=== PATIENT | male | born 1965 | race Caucasian/White ===

== ENCOUNTER 2019-04-12 11:18 | Inpatient (IN) ==
[2019-04-12 11:42] LABS: iSTAT Creatinine 1.2 mg/dl (0.6-1.3); iSTAT Hemoglobin 16.3 g/dl (14.0-18.0); iSTAT Ionized Calcium 1.14 mmol/l (1.12-1.32); iSTAT Potassium 3.9 mEq/L (3.3-5.0)
[2019-04-12 11:43] LABS: Basophils # (auto) 0.07 K/uL (0-0.2); Basophils % (auto) 0.9 %; Eosinophils # (auto) 0.22 K/uL (0-0.5); Eosinophils % (auto) 2.9 %; Hematocrit (blood only) 45.5 % (42-52); Hemoglobin 15.6 g/dL (14.0-18.0); Mean Corpuscular Hemoglobin 29.5 pg (25-34); Mean Corpuscular Hgb Conc 34.3 g/dL (32-36); Mean Corpuscular Volume 86.2 fL (80-100); Mean Platelet Volume 10.4 fL (7.4-10.4); Monocytes # (auto) 0.81 K/uL (0.11-0.59); Monocytes % (auto) 10.6 %; Neutrophils # (auto) 3.64 K/uL (1.4-6.5); Neutrophils % (auto) 47.6 %; Platelet Count 318 K/uL (130-400); RDW Coefficient of Variation 14.2 % (11.5-14.5); RDW Standard Deviation 44.1 fL (36.4-46.3); Red Blood Count 5.28 M/uL (4.7-6.1); White Blood Count 7.64 K/uL (4.8-10.8)
[2019-04-12 11:43] LABS: iSTAT Arterial Blood Gas HCO3 26 meg/L (19-24); iSTAT Arterial Blood Gas pCO2 42 mmHg (35-46); iSTAT Arterial Blood Gas pO2 397 mmHg (80-95); iSTAT Carbon Dioxide 27 mEq/l (24-31)
[2019-04-12] MEDS ORDERED: OPTIRAY 320 125ml IV PRN (11:45)
--- NOTE | 2019-04-12 11:58 | CT Scan Report ---
UNENHANCED CT OF THE BRAIN; CT ANGIOGRAM OF THE BRAIN; CT ANGIOGRAM OF THE NECK CLINICAL HISTORY: Change in mental status. Unresponsive. COMPARISON STUDY: No priors. TECHNIQUE: Unenhanced axial CT scan of the brain is performed. Subsequently, following the IV adminis tration of 120 of [address] 320, CT angiogram of the head and neck was performed from the aortic arch t o the vertex. Images are reviewed in the axial, sagittal, and coronal planes. 3-D MIPS images are cre ated and assessed. IV contrast was administered without complication. All measurements were calculate d based on NASCET criteria. A dose lowering technique was utilized adhering to the principles of ALA RA. CT DOSE: 1268.10 mGy.cm FINDINGS: Brain parenchyma: The brain parenchyma is normal in appearance. There is no hemorrhage, mass effect, or evidence of acute territorial ischemia by CT criteria. There is no evidence of enhancing mass lesi on on the angiogram phase images. The ventricles, sulci, and cisterns are normal in configuration. Gr ay-white matter differentiation is preserved. No extra-axial fluid collection is seen. Thoracic aorta: Visualized portions of the thoracic aorta are normal in caliber. The aortic arch demo nstrates standard 3-vessel anatomy. Right carotid arterial system: The right common carotid artery is widely patent, as are the right int ernal and external carotid arteries. Mild atherosclerotic plaque is noted in the carotid bulb. Left carotid arterial system: The left common carotid artery is widely patent, as are the left architect intern al and external carotid arteries. Mild atherosclerotic plaque is noted in the carotid bulb. Vertebral arteries: The vertebral arteries are patent bilaterally and codominant. Subclavian arteries: Widely patent bilaterally. Intracranial vasculature: There is a large right posterior communicating artery. The internal carotid arteries are patent at the skull base, as are the anterior and middle cerebral arteries bilaterally. The vertebrobasilar system and posterior cerebral arteries are widely patent. The vertebral arteries are codominant. There is no aneurysm, high-grade stenosis, or focal vessel cut off seen throughout t he intracranial circulation. Jugular veins: Widely patent bilaterally. Dural sinuses: Patent. Upper chest: Partially visualized upper lobe lung parenchyma appears clear. There are scattered subce ntimeter mediastinal lymph nodes. Soft tissues: The visualized pharyngeal soft tissues are normal in appearance noting angiographic pha se technique. The oropharyngeal airway appears widely patent. The salivary and thyroid glands are nor mal in appearance. No cervical lymphadenopathy is seen. Orbits: The bony orbits are intact. Orbital contents are normal in appearance. Skeletal structures: The calvarium appears intact. The cervical spine is maintained noting mild multi level spondylosis. No lytic or blastic lesion is seen. Sinuses and mastoids: There is a 3.5 cm retention cyst in the right maxillary antrum. Trace mucosal t hickening is seen in the left maxillary antrum. The remaining paranasal sinuses are clear. There is a trace right mastoid effusion. The left mastoid air cells are well pneumatized. IMPRESSION: 1. There is no hemorrhage, mass effect, or evidence of acute territorial ischemia by CT criteria. 2. Unremarkable CT angiogram of the brain. 3. Unremarkable CT angiogram of the neck. Electronically signed by: Catrachito Villalta M.D. 04/12/2019 11:56 AM
[2019-04-12 12:02] LABS: Alanine Aminotransferase 44 U/L (12-78); Albumin Level 3.8 gm/dl (3.4-5.0); Aspartate Aminotransferase 28 U/L (15-37); Blood Urea Nitrogen 11 mg/dl (7-18); Calcium 8.7 mg/dl (8.5-10.1); Carbon Dioxide 26 mmol/L (21-32); Chloride 108 mmol/L (98-107); Creatinine Clr Calc Pharmacy 95.2 ml/min; Est GFR (African American) 81.2; Glucose 94 mg/dl (70-99); Potassium 3.8 mmol/L (3.5-5.1); Sodium 141 mmol/L (136-145)
[2019-04-12 12:12] LABS: Albumin Globulin Ratio 1.1 (0.9-2); Alkaline Phosphatase 93 U/L (45-117); Bilirubin,Total 0.8 mg/dl (0.2-1); Globulin 3.6 gm/dl (2.5-4.0); Total Protein 7.4 gm/dl (6.4-8.2); Troponin I < 0.015 ng/ml (0-0.045)
[2019-04-12 12:28] LABS: Appearance Urine Clear (Clear); Bilirubin Urine Negative (Negative); Blood Urine Negative (Negative); Color Urine Yellow; Glucose Urine UA Negative (Negative); Ketones Urine Negative (Negative); Leukocyte Esterase Urine Negative (Negative); Nitrite Urine Negative (Negative); Protein Urine Negative (Negative); Specific Gravity Urine 1.037 (1.000-1.030); Urobilinogen Urine Negative (Negative); pH Urine 6.5 (4.5-7.5)
[2019-04-12] MEDS ORDERED: CLOPIDOGREL BISULFATE 300 MG TAB PO STA (12:45)
[2019-04-12 12:49] LABS: Amphetamines+Metham, Urine Neg (Neg); Barbiturates, Urine Neg (Neg); Benzodiazepine, Urine Neg (Neg); Cocaine, Urine Neg (Neg); MDMA (Ecstacy), Urine Neg (Neg); Methadone, Urine Neg (Neg); Opiate, Urine Neg (Neg); Phencyclidine, Urine Neg (Neg)
--- NOTE | 2019-04-12 13:44 | History & Physical Report ---
Date of Service April 12, 2019 Assessment & Plan (1) Stroke: (2) Altered mental status: Pt presented with c/o dizziness around 8:00am this morning and it is reported he went [place] [facility] and was found to have altered mental status and possible right sided weakness when he became unresponsive. In ER pt afebrile, P: 68, R: 21, BP: 180/115, 100% on NR transitioned to 3L NC with sat of 99% No leukocytosis, no significant electrolyte abnormality, TSH: 1.9, negative troponin, negative urine tox screen, negative ETOH level During ER course pt became alert and oriented ER physician reports spoke to neurology at [place] and pt out of window for TPA and recommended Plavix load and MRI brain. CT HEAD: There is no hemorrhage, mass effect, or evidence of acute territorial ischemia by CT criteria. CTA HEAD: Unremarkable CT angiogram of the brain. CTA NECK: Unremarkable CT angiogram of the neck. MRI BRAIN:There is a 7 mm focus of restricted diffusion identified in the left thalamus consistent with an acute to subacute lacunar infarct. No additional foci of restricted diffusion are identified. There is no hemorrhage or mass effect. -In ER given Plavix 300mg -Currently pt A&O x 3 with right sided weakness, no further dizziness or vision changes reported. Clear speech -ASA 324mg -Tele to monitor for arrhythmias -Trend troponin -Lipid panel, A1C in AM -Echo with bubble study -Aspiration precautions -PT/OT consult -Atorvastatin, Plavix, Aspirin -Allow permissive HTN, Labetaolol SBP>220 or DBP>120 in 1st 24 hrs -Neurology consult (3) GERD (gastroesophageal reflux disease): -Continue PPI DVT Prophylaxis -SCDs Full Code Follows with Dr Lopez for routine care Pt was seen and care coordinated with Dr Brown. See addendum History of Present Illness Chief Complaint: Altered mental status Primary Care Provider: Winston Lopez MD Pt is 53 y/o M with PMH GERD presented to ER for altered mental status unresponsive episode. Pt states around approx. 8:00am this morning pt was feeling dizzy adn had blurry vision. States he completed some errands and symptoms were worse and went to his local [facility] at [place]. It is reported he was not acting right, had altered mental status and there was question of right sided weakness. Reported he became unresponsive and was t ransported to ER by EMS. During ER course pt became more alert. ER Physician reports spoke to neurologist at [place] and recommended MRI brain and load with Plavix and reports pt out of window for TPA. Pt states he remembers going to the [facility] but doesn't remember anything after that until now in ER. He is now A&O x 3. Denies any current vision changes. Has right arm and leg weakness and some right finger paresthesias. Denies head injury, fever/chills, diaphoresis, N/V/D/C, MARTINI, neck pain, CP, SOB, orthopnea, palpitations, cough, sore throat, choking, otalgia, rhinorrhea, abdominal pain, extremity edema, rashes, urinary symptoms. Allergies Allergy/AdvReac Type Severity Reaction Status Date / Time No Known Allergies Allergy Unverified 04/12/19 12:02 Home Medications Home Medications Medication Instructions Recorded Confirmed Type cetirizine [Zyrtec] 10 mg PO QAM 04/12/19 04/12/19 History multivitamin 1 tab PO QAM 04/12/19 04/12/19 History pantoprazole 40 mg PO BID 04/12/19 04/12/19 History pyridoxine (vitamin B6) [Vitamin 50 mg PO QAM 04/12/19 04/12/19 History B-6] sildenafil 100 mg PO UD 04/12/19 04/12/19 History Past Med/Surg History Medical History History of positive PPD (Chronic) treated with INH x 6 months GERD (gastroesophageal reflux disease) (Chronic) Surgical History Status post hip replacement (Chronic) Right hip; 08/28/2015 Family History Father Prostate cancer Social History Preferred Language: [place] Communication Ability: Effective Body Technician Required: No Beliefs That Will Affect Care: None marital status: Current Living Situation: Spouse current occupational status: employed Other Information That Helps Us Care for You: No Feels Safe at Home: Yes Safety Concerns: Feels Safe At This Time Smoking Status: Never smoker Do You Dip or Chew Tobacco: No ; Second Hand Exposure: No ; Hx Alcohol Use: Yes Alcohol type: beer Hx Substance Use: No Review of Systems Review of Systems: All systems reviewed & are unremarkable except as noted in HPI & below Physical Exam Physical Exam: General: no acute distress, obese Head: normocephalic, atraumatic Eyes: PERRL, EOM's intact, mild nystagmus, conjunctiva non-injected, anicteric ENT: normal inspection external ears, nose, mucous membranes moist Neck: supple, trachea midline Lungs: clear, no respiratory distress, no wheezing/rhonchi/rales CV: RRR, no murmur, no JVD, no pretibial edema Abd: normal BS, soft, protuberant, non-tender Ext: no cyanosis, no calf tenderness Neuro: A&O x 3, Facial sensation is intact and symmetric, The face is strong and symmetric, Hearing grossly intact, no dysarthria, Shoulder shrug intact, Tongue is midline, normal movement, no fasciculations, Right arm weakness, able to actively raise to approx 70 degrees, strength 3/5, very decreased parachute crown sewer strength on right, right leg weakness very limited leg raise, pedal push and pull intact, 5/5 strength to left arm and leg and strong parachute crown sewer strength on left, sensation bilateral extremities reported intact and symmetric, left hand finger to nose intact, unable to test right secondary to right arm weakness Skin: warm, dry Results & Data Vital Signs (Past 12 Hours) Vital Signs Temp Pulse Resp BP Pulse Ox 04/12/19 13:10 156/100 H 99 04/12/19 13:00 68 17 152/111 H 98 04/12/19 12:50 74 15 156/105 H 99 04/12/19 12:40 73 21 153/101 H 99 04/12/19 12:30 70 16 168/119 H 99 04/12/19 12:20 70 20 159/104 H 99 04/12/19 12:10 74 17 148/108 H 94 04/12/19 12:00 79 16 155/108 H 98 04/12/19 11:50 84 15 172/117 H 99 04/12/19 11:45 86 18 179/116 H 99 04/12/19 11:24 36.8 C 68 21 180/115 H 100 04/12/19 11:22 70 21 180/115 H 100 Laboratory Results Short CBC 04/12/19 Range/Units 11:30 WBC 7.64 (4.8-10.8) K/uL Hgb 15.6 (14.0-18.0) g/dL Hct 45.5 (42-52) % Plt Count 318 (130-400) K/uL BMP 04/12/19 11:30 Sodium 141 Potassium 3.8 Chloride 108 H Carbon Dioxide 26 BUN 11 Creatinine 1.18 Glucose 94 Calcium 8.7 Cardiac Enzymes 04/12/19 Range/Units 11:30 Troponin I < 0.015 (0-0.045) ng/ml Liver Function 04/12/19 Range/Units 11:30 Total Bilirubin 0.8 (0.2-1) mg/dl AST 28 (15-37) U/L ALT 44 (12-78) U/L Alkaline Phosphatase 93 (45-117) U/L Albumin 3.8 (3.4-5.0) gm/dl Urine 04/12/19 Range/Units 12:16 Urine Color Yellow Urine Appearance Clear (Clear) Urine pH 6.5 (4.5-7.5) Ur Specific Sylvester 1.037 H (1.000-1.030) Urine Protein Negative (Negative) Urine Glucose (UA) Negative (Negative) Diagnostic Findings CT HEAD: There is no hemorrhage, mass effect, or evidence of acute territorial ischemia by CT criteria. CTA HEAD: Unremarkable CT angiogram of the brain. CTA NECK: Unremarkable CT angiogram of the neck. ECG Rate (beats per minute): 70 Rhythm: sinus rhythm Supervising Physician Co-Signing Physician Notes Patient is a 53-year-old male with no significant past medical history presents with history of altered mental status, unresponsive episode, dizziness, transient blurry vision and right-sided weakness which started this morning. Please review HPI for complete details of presentation. MRI brain showed findings suggestive of acute to subacute lacunar infarct of the left thalamus. Head and neck CT are unremarkable. Normal ammonia, TSH levels. Negative toxicology screen. UA not suggestive of any infection. On exam patient is moderately built and nourished, normocephalic atraumatic, EOMI, lungs are clear to auscultation, S1-S2, no murmur, abdomen soft nontender, no pedal edema, neuro--no facial deformity, right upper, lower extremity strength decreased 3/5, sensation intact. Patient is admitted for management of acute CVA. Evaluated by [facility] neurology and was thought to be out of window period for TPA. Started on aspirin, Plavix, Lipitor. Will obtain echo, lipid panel, A1c. Neurochecks, neurology consult. PT OT. Allow permissive hypertension in setting of acute CVA. I personally reviewed the record. Patient is interviewed and examined at bedside. Patient's care is coordinated with Magui Lorenzo PA-C. Please refer to the documentation above for details of patient's presentation and for discussion of other issues. (1) Altered mental status Altered mental status type: unspecified Qualified Code(s): R41.82 - Altered mental status, unspecified (2) Stroke CVA mechanism: unspecified Qualified Code(s): I63.9 - Cerebral infarction, unspecified
--- NOTE | 2019-04-12 13:56 | Magnetic Resonance Report ---
MRI OF THE BRAIN WITHOUT IV CONTRAST CLINICAL HISTORY: Change in mental status. Unresponsive. COMPARISON STUDY: CT of the brain performed the same day 04/12/2019. TECHNIQUE: MRI of the brain was performed utilizing various T1 and T2-weighted sequences in the axial , sagittal, and coronal planes. IV contrast was not administered for this examination. FINDINGS: Brain parenchyma: There is a 7 mm focus of restricted diffusion identified in the left thalamus consi stent with an acute to subacute lacunar infarct. No additional foci of restricted diffusion are ident ified. There is no hemorrhage or mass effect. There is minimal subcortical and periventricular microa ngiopathic change. Pedraza-white matter differentiation is preserved. No extra-axial fluid collection is seen. The cerebellar tonsils are normal in configuration. Ventricles, sulci, and cisterns: Normal in configuration. Pituitary and sella: Unremarkable. Intracranial vasculature: Normal flow voids are maintained at the skull base. Orbits: The bony orbits are grossly intact. Orbital contents are normal in appearance. Sinuses and mastoids: There is a 3.6 cm retention cyst in the right maxillary antrum. Trace mucosal t hickening is seen in the left maxillary antrum. The remaining paranasal sinuses are clear. There is t race right mastoid effusion. Calvarium: Unremarkable. Cervical cord: Partially visualized cervical spinal cord is normal in morphology and signal intensity . IMPRESSION: 1. There is a 7 mm focus of restricted diffusion identified in the left thalamus consistent with an a cute to subacute lacunar infarct. 2. No additional foci of restricted diffusion are identified. 3. There is no hemorrhage or mass effect. Electronically signed by: Catrachito Villalta M.D. 04/12/2019 1:55 PM
[2019-04-12] MEDS ORDERED: ASPIRIN 325 MG ECTAB PO SCH (14:30)
--- NOTE | 2019-04-12 14:43 | Emergency Department Note ---
Entered by Julia Reagan acting as a scribe for Cezar Underwood M.D. History of Present Illness General Chief complaint: Unresponsive Time Seen by Provider: 04/12/19 11:20 Source: family and friends History of Present Illness Onset (ago): hour(s) 3 Location: head Pain Consistency: + other (episode) Quality: + other (unresponsiveness) The patient is a 53 year old male that is presenting to the Emergency Room with complaints of an episode of unresponsiveness that started this morning on route to the ED. The patients friends at his [facility] report that the patient started complaining of right sided weakness and dizziness around 0800 this morning. They state that the patient presented at the [facility] to be brought to the ED. They note that the patient become unresponsive during the trip to the ED. The patients friends state that the patient drinks on occasion but denies that the patient had any alcohol in the past 24 hours. They note that the patients blood glucose level has been dropping since this morning, dropping from 120 mg /dL to 80 mg/dL upon arrival at the ED. They deny any significant medical history beyond GERD and a hip replacement. 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 The patient is minimally responsive to painful stimuli on exam. He does have a gag reflex. HPI and ROS are limited secondary to the patients limited responsive status. Home Medications Home Medications Medication Instructions Recorded Confirmed Type cetirizine [Zyrtec] 10 mg PO QAM 04/12/19 04/12/19 History multivitamin 1 tab PO QAM 04/12/19 04/12/19 History pantoprazole 40 mg PO BID 04/12/19 04/12/19 History pyridoxine (vitamin B6) [Vitamin 50 mg PO QAM 04/12/19 04/12/19 History B-6] sildenafil 100 mg PO UD 04/12/19 04/12/19 History Allergies Allergy/AdvReac Type Severity Reaction Status Date / Time No Known Allergies Allergy Unverified 04/12/19 12:02 Past Med/Surg History Medical History History of positive PPD (Chronic) treated with INH x 6 months GERD (gastroesophageal reflux disease) (Chronic) Surgical History Status post hip replacement (Chronic) Right hip; 08/28/2015 Family History Father Prostate cancer Social History marital status: Current Living Situation: Spouse current occupational status: employed Feels Safe at Home: Yes Smoking Status: Unknown if ever smoked Hx Alcohol Use: Yes (5 beers on weekends) Hx Substance Use: No Review of Systems HPI and ROS are limited secondary to the patient's limited responsive status. Physical Exam Vital Signs Vital Signs - 24 hr 04/12/19 11:22 04/12/19 11:24 04/12/19 11:45 Temperature 36.8 C Temperature Source Rectal Sepsis Recent Fever Within 48 Hours No Sepsis New/Unexplained Change in Mental Status No Sepsis Action Taken by Nursing No Action Required Pulse Rate 70 68 86 Pulse Rate from SpO2 Sensor 70 82 Pulse Rhythm Regular Pulse Strength Normal Respiratory Rate 21 18 Blood Pressure 180/115 H 180/115 H 179/116 H Blood Pressure Mean 136 136 137 Blood Pressure Position Lying Pulse Oximetry 100 100 99 Oxygen Delivery Method Non-rebreather Oxygen Flow Rate 15 04/12/19 11:50 04/12/19 12:00 04/12/19 12:10 Temperature Temperature Source Sepsis Recent Fever Within 48 Hours Sepsis New/Unexplained Change in Mental Status Sepsis Action Taken by Nursing Pulse Rate 84 79 74 Pulse Rate from SpO2 Sensor 84 75 72 Pulse Rhythm Pulse Strength Respiratory Rate 15 16 17 Blood Pressure 172/117 H 155/108 H 148/108 H Blood Pressure Mean 135 123 121 Blood Pressure Position Pulse Oximetry 99 98 94 Oxygen Delivery Method Nasal Cannula Nasal Cannula Nasal Cannula Oxygen Flow Rate 3 3 3 04/12/19 12:20 04/12/19 12:30 04/12/19 12:40 Temperature Temperature Source Sepsis Recent Fever Within 48 Hours Sepsis New/Unexplained Change in Mental Status Sepsis Action Taken by Nursing Pulse Rate 70 70 73 Pulse Rate from SpO2 Sensor 69 70 73 Pulse Rhythm Pulse Strength Respiratory Rate 20 16 21 Blood Pressure 159/104 H 168/119 H 153/101 H Blood Pressure Mean 122 135 118 Blood Pressure Position Pulse Oximetry 99 99 99 Oxygen Delivery Method Oxygen Flow Rate 04/12/19 12:50 04/12/19 13:00 04/12/19 13:10 Temperature Temperature Source Sepsis Recent Fever Within 48 Hours Sepsis New/Unexplained Change in Mental Status Sepsis Action Taken by Nursing Pulse Rate 74 68 Pulse Rate from SpO2 Sensor 75 69 63 Pulse Rhythm Pulse Strength Respiratory Rate 15 17 Blood Pressure 156/105 H 152/111 H 156/100 H Blood Pressure Mean 122 124 118 Blood Pressure Position Pulse Oximetry 99 98 99 Oxygen Delivery Method Nasal Cannula Nasal Cannula Nasal Cannula Oxygen Flow Rate 3 3 3 04/12/19 13:52 04/12/19 14:00 04/12/19 14:22 Temperature Temperature Source Sepsis Recent Fever Within 48 Hours Sepsis New/Unexplained Change in Mental Status Sepsis Action Taken by Nursing Pulse Rate 84 73 74 Pulse Rate from SpO2 Sensor 79 75 74 Pulse Rhythm Pulse Strength Respiratory Rate 15 15 21 Blood Pressure 151/112 H Blood Pressure Mean 125 Blood Pressure Position Pulse Oximetry 99 99 98 Oxygen Delivery Method Oxygen Flow Rate 04/12/19 14:30 Temperature Temperature Source Sepsis Recent Fever Within 48 Hours Sepsis New/Unexplained Change in Mental Status Sepsis Action Taken by Nursing Pulse Rate 80 Pulse Rate from SpO2 Sensor 78 Pulse Rhythm Pulse Strength Respiratory Rate 23 Blood Pressure Blood Pressure Mean Blood Pressure Position Pulse Oximetry 98 Oxygen Delivery Method Oxygen Flow Rate GENERAL: Responsive to strong stimuli, non-verbal. Withdraw from pain in all four extremities. HENT: Normocephalic, atraumatic. Gag reflex. EYES: Normal conjunctiva. Sclera non-icteric. No gaze deviation. NECK: Supple. No nuchal rigidity. RESPIRATORY: Clear to auscultation. Normal respiratory effort. CARDIAC: Normal rate. Normal rhythm. Extremities warm and well perfused. GI: Soft, non-distended. No tenderness to palpation. No masses. LOWER EXTREMITIES: Calves are equal size bilaterally and non-tender. No edema NEURO: Normal sensorium. No sensory or motor deficits noted. No facial droop. SKIN: Warm and dry. No rash or jaundice noted. Course 1119:The patient was evaluated in room B01. A complete history and physical examination was performed. The Respiratory Care Team was available upon arrival. The patient's blood glucose level is 80 mg/dL in the ED. He was taken to CT shortly after labs were drawn. 1151: I reevaluated the patient at this time. The patient will move to extremities to command but still non-verbal. 1230: The patient was noted to have focal weaknesses on the left side on reevaluation. He is able to verbalize at this time. He notes a pain in his left lower extremity. 1241: I discussed the patients case with Dr. Quinteros, [facility], who recommended that the patient be kept for observation at the hospital. He recommends a Plavix load and an MRI. 1253: I updated the patient at this time. [facility]ist service has been paged. 1308: I discussed the patient's case with MIRANDA Reynoso, who will evaluate the patient for further management and care with Dr. Brown as the attending physician. 1315: Upon reevaluation, the patient is resting comfortably. I discussed laboratory and radiographic results with the patient and his family. He ve rbalized agreement of the treatment plan. The patient will be evaluated for further management and care. 1412: I updated the family on the MRI results at this time. Consultations Consultation #1: I discussed the patients case with Dr. Quinteros, [facility], who recommended that the patient be kept for observation at the hospital. He recommends a Plavix load and an MRI. Time: 12:41 Consultation #2: I discussed the patient's case with MIRANDA Reynoso, who will evaluate the patient for further management and care with Dr. Brown as the attending physician. Time: 13:08 Administered Medications Ioversol (Optiray 320 125ml) 120 ml IV ONCE PRN PRN Reason: Interaction Checking Stop: 04/16/19 11:44 Last Admin: 04/12/19 11:46 Dose: 120 ml Documented by: [id number] Discontinued Medications Clopidogrel Bisulfate (Plavix) 300 mg PO NOW STA Stop: 04/12/19 12:46 Last Admin: 04/12/19 12:52 Dose: 300 mg Documented by: [id number] Medical Decision Making Differential Diagnosis Differential diagnosis: Etiologies such as metabolic, infection, hypoglycemia, electrolyte abnormalities, cardiac sources, intracerebral event, toxicologic, neurologic, as well as others were entertained. Medical Records Attestation: I reviewed the patient's medical records. Home Medications Current Medication List: was personally reviewed by me Laboratory Data Attestation: I reviewed the patient's lab results. Result diagrams: 04/12/19 11:30 04/12/19 11:30 Lab Results 04/12/19 04/12/19 04/12/19 Range/Units 11:27 11:30 11:30 WBC 7.64 (4.8-10.8) K/uL RBC 5.28 (4.7-6.1) M/uL Hgb 15.6 (14.0-18.0) g/dL POC Hgb (14.0-18.0) g/dl Hct 45.5 (42-52) % POC Hct (42-52) % MCV 86.2 (80-100) fL MCH 29.5 (25-34) pg MCHC 34.3 (32-36) g/dL RDW Std Deviation 44.1 (36.4-46.3) fL RDW Coeff of Codie 14.2 (11.5-14.5) % Plt Count 318 (130-400) K/uL MPV 10.4 (7.4-10.4) fL Immature Gran % (Auto) 0.0 % Neut % (Auto) 47.6 % Lymph % (Auto) 38.0 % Hyde % (Auto) 10.6 % Eos % (Auto) 2.9 % Baso % (Auto) 0.9 % Immature Gran # (Auto) 0.00 (0.00-0.02) K/uL Neut # (Auto) 3.64 (1.4-6.5) K/uL Lymph # (Auto) 2.90 (1.2-3.4) K/uL Hyde # (Auto) 0.81 H (0.11-0.59) K/uL Eos # (Auto) 0.22 (0-0.5) K/uL Baso # (Auto) 0.07 (0-0.2) K/uL POC pH 7.40 (7.35-7.45) POC pCO2 42 (35-46) mmHg POC pO2 397 H (80-95) mmHg POC HCO3 26 H (19-24) shane/L POC Total CO2 27 (24-31) mEq/l POC Base Excess 1.0 (-9-1.8) shane/L POC ABG O2 Sat 100.0 H (90-95) % POC Sodium (135-144) mEq/L Sodium 141 (136-145) mmol/L POC Potassium (3.3-5.0) mEq/L Potassium 3.8 (3.5-5.1) mmol/L POC Chloride (101-112) mEq/L Chloride 108 H (98-107) mmol/L Carbon Dioxide 26 (21-32) mmol/L Anion Gap 7.0 (3-11) POC Anion Gap (16-25) mmol/L POC BUN (7-18) mg/dl BUN 11 (7-18) mg/dl Creatinine 1.18 (0.6-1.4) mg/dl POC Creatinine (0.6-1.3) mg/dl Est Cr Clr Drug Dosing 95.2 ml/min Est GFR ( Amer) 81.2 Est GFR (Non-Af Amer) 70.0 BUN/Creatinine Ratio 9.0 L (10-20) Glucose 94 (70-99) mg/dl POC Glucose (other) (70-99) mg/dl Calcium 8.7 (8.5-10.1) mg/dl POC Ioniz Calcium Alex (1.12-1.32) mmol/l Total Bilirubin 0.8 (0.2-1) mg/dl AST 28 (15-37) U/L ALT 44 (12-78) U/L Alkaline Phosphatase 93 (45-117) U/L Ammonia (11-32) umol/L Troponin I < 0.015 (0-0.045) ng/ml Total Protein 7.4 (6.4-8.2) gm/dl Albumin 3.8 (3.4-5.0) gm/dl Globulin 3.6 (2.5-4.0) gm/dl Albumin/Globulin Ratio 1.1 (0.9-2) TSH 1.990 (0.300-4.500) uIu/ml Urine Color Urine Appearance (Clear) Urine pH (4.5-7.5) Ur Specific P[place] (1.000-1.030) Urine Protein (Negative) Urine Glucose (UA) (Negative) Urine Ketones (Negative) Urine Blood (Negative) Urine Nitrite (Negative) Urine Bilirubin (Negative) Urine Urobilinogen (Negative) Ur Leukocyte Esterase (Negative) Urine Opiates Screen (Neg) Ur Methadone, Qual (Neg) Urine Barbiturates (Neg) Ur Phencyclidine (PCP) (Neg) U Amphetamin/Meth Scrn (Neg) MDMA (Ecstasy) Screen (Neg) U Benzodiazepines Scrn (Neg) Ur Cocaine Metabolite (Neg) U Marijuana (THC) Screen (Neg) Ethyl Alcohol mg/dL (0-3) mg/dl 04/12/19 04/12/19 04/12/19 Range/Units 11:30 12:00 12:16 WBC (4.8-10.8) K/uL RBC (4.7-6.1) M/uL Hgb (14.0-18.0) g/dL POC Hgb 16.3 (14.0-18.0) g/dl Hct (42-52) % POC Hct 48 (42-52) % MCV (80-100) fL MCH (25-34) pg MCHC (32-36) g/dL RDW Std Deviation (36.4-46.3) fL RDW Coeff of Codie (11.5-14.5) % Plt Count (130-400) K/uL MPV (7.4-10.4) fL Immature Gran % (Auto) % Neut % (Auto) % Lymph % (Auto) % Hyde % (Auto) % Eos % (Auto) % Baso % (Auto) % Immature Gran # (Auto) (0.00-0.02) K/uL Neut # (Auto) (1.4-6.5) K/uL Lymph # (Auto) (1.2-3.4) K/uL Hyde # (Auto) (0.11-0.59) K/uL Eos # (Auto) (0-0.5) K/uL Baso # (Auto) (0-0.2) K/uL POC pH (7.35-7.45) POC pCO2 (35-46) mmHg POC pO2 (80-95) mmHg POC HCO3 (19-24) shane/L POC Total CO2 22 L (24-31) mEq/l POC Base Excess (-9-1.8) shane/L POC ABG O2 Sat (90-95) % POC Sodium 140 (135-144) mEq/L Sodium (136-145) mmol/L POC Potassium 3.9 (3.3-5.0) mEq/L Potassium (3.5-5.1) mmol/L POC Chloride 105 (101-112) mEq/L Chloride (98-107) mmol/L Carbon Dioxide (21-32) mmol/L Anion Gap (3-11) POC Anion Gap 18.0 (16-25) mmol/L POC BUN 10 (7-18) mg/dl BUN (7-18) mg/dl Creatinine (0.6-1.4) mg/dl POC Creatinine 1.2 (0.6-1.3) mg/dl Est Cr Clr Drug Dosing ml/min Est GFR ( Amer) Est GFR (Non-Af Amer) BUN/Creatinine Ratio (10-20) Glucose (70-99) mg/dl POC Glucose (other) 99 (70-99) mg/dl Calcium (8.5-10.1) mg/dl POC Ioniz Calcium Alex 1.14 (1.12-1.32) mmol/l Total Bilirubin (0.2-1) mg/dl AST (15-37) U/L ALT (12-78) U/L Alkaline Phosphatase (45-117) U/L Ammonia (11-32) umol/L Troponin I (0-0.045) ng/ml Total Protein (6.4-8.2) gm/dl Albumin (3.4-5.0) gm/dl Globulin (2.5-4.0) gm/dl Albumin/Globulin Ratio (0.9-2) TSH (0.300-4.500) uIu/ml Urine Color Urine Appearance (Clear) Urine pH (4.5-7.5) Ur Specific Pise[place] (1.000-1.030) Urine Protein (Negative) Urine Glucose (UA) (Negative) Urine Ketones (Negative) Urine Blood (Negative) Urine Nitrite (Negative) Urine Bilirubin (Negative) Urine Urobilinogen (Negative) Ur Leukocyte Esterase (Negative) Urine Opiates Screen Neg (Neg) Ur Methadone, Qual Neg (Neg) Urine Barbiturates Neg (Neg) Ur Phencyclidine (PCP) Neg (Neg) U Amphetamin/Meth Scrn Neg (Neg) MDMA (Ecstasy) Screen Neg (Neg) U Benzodiazepines Scrn Neg (Neg) Ur Cocaine Metabolite Neg (Neg) U Marijuana (THC) Screen Neg (Neg) Ethyl Alcohol mg/dL < 3.0 (0-3) mg/dl 04/12/19 04/12/19 Range/Units 12:16 12:48 WBC (4.8-10.8) K/uL RBC (4.7-6.1) M/uL Hgb (14.0-18.0) g/dL POC Hgb (14.0-18.0) g/dl Hct (42-52) % POC Hct (42-52) % MCV (80-100) fL MCH (25-34) pg MCHC (32-36) g/dL RDW Std Deviation (36.4-46.3) fL RDW Coeff of Codie (11.5-14.5) % Plt Count (130-400) K/uL MPV (7.4-10.4) fL Immature Gran % (Auto) % Neut % (Auto) % Lymph % (Auto) % Hyde % (Auto) % Eos % (Auto) % Baso % (Auto) % Immature Gran # (Auto) (0.00-0.02) K/uL Neut # (Auto) (1.4-6.5) K/uL Lymph # (Auto) (1.2-3.4) K/uL Hyde # (Auto) (0.11-0.59) K/uL Eos # (Auto) (0-0.5) K/uL Baso # (Auto) (0-0.2) K/uL POC pH (7.35-7.45) POC pCO2 (35-46) mmHg POC pO2 (80-95) mmHg POC HCO3 (19-24) shane/L POC Total CO2 (24-31) mEq/l POC Base Excess (-9-1.8) shane/L POC ABG O2 Sat (90-95) % POC Sodium (135-144) mEq/L Sodium (136-145) mmol/L POC Potassium (3.3-5.0) mEq/L Potassium (3.5-5.1) mmol/L POC Chloride (101-112) mEq/L Chloride (98-107) mmol/L Carbon Dioxide (21-32) mmol/L Anion Gap (3-11) POC Anion Gap (16-25) mmol/L POC BUN (7-18) mg/dl BUN (7-18) mg/dl Creatinine (0.6-1.4) mg/dl POC Creatinine (0.6-1.3) mg/dl Est Cr Clr Drug Dosing ml/min Est GFR ( Amer) Est GFR (Non-Af Amer) BUN/Creatinine Ratio (10-20) Glucose (70-99) mg/dl POC Glucose (other) (70-99) mg/dl Calcium (8.5-10.1) mg/dl POC Ioniz Calcium Alex (1.12-1.32) mmol/l Total Bilirubin (0.2-1) mg/dl AST (15-37) U/L ALT (12-78) U/L Alkaline Phosphatase (45-117) U/L Ammonia 12.2 (11-32) umol/L Troponin I (0-0.045) ng/ml Total Protein (6.4-8.2) gm/dl Albumin (3.4-5.0) gm/dl Globulin (2.5-4.0) gm/dl Albumin/Globulin Ratio (0.9-2) TSH (0.300-4.500) uIu/ml Urine Color Yellow Urine Appearance Clear (Clear) Urine pH 6.5 (4.5-7.5) Ur Specific [place] 1.037 H (1.000-1.030) Urine Protein Negative (Negative) Urine Glucose (UA) Negative (Negative) Urine Ketones Negative (Negative) Urine Blood Negative (Negative) Urine Nitrite Negative (Negative) Urine Bilirubin Negative (Negative) Urine Urobilinogen Negative (Negative) Ur Leukocyte Esterase Negative (Negative) Urine Opiates Screen (Neg) Ur Methadone, Qual (Neg) Urine Barbiturates (Neg) Ur Phencyclidine (PCP) (Neg) U Amphetamin/Meth Scrn (Neg) MDMA (Ecstasy) Screen (Neg) U Benzodiazepines Scrn (Neg) Ur Cocaine Metabolite (Neg) U Marijuana (THC) Screen (Neg) Ethyl Alcohol mg/dL (0-3) mg/dl Imaging Data Radiologist's Impression: Radiology results as stated below per my review and the radiologist's interpretation: UNENHANCED CT OF THE BRAIN; CT ANGIOGRAM OF THE BRAIN; CT ANGIOGRAM OF THE NECK CLINICAL HISTORY: Change in mental status. Unresponsive. COMPARISON STUDY: No priors. TECHNIQUE: Unenhanced axial CT scan of the brain is performed. Subsequently, fo llowing the IV administration of 120 of Optiray 320, CT angiogram of the head and neck was performed from the aortic arch to the vertex. Images are reviewed in the axial, sagittal, and coronal planes. 3-D MIPS images are created and assessed. IV contrast was administered without complication. All measurements were calculated based on NASCET criteria. A dose lowering technique was utilized adhering to the principles of ALARA. CT DOSE: 1268.10 mGy.cm FINDINGS: Brain parenchyma: The brain parenchyma is normal in appearance. There is no hemorrhage, mass effect, or evidence of acute territorial ischemia by CT criteria. There is no evidence of enhancing mass lesion on the angiogram phase images. The ventricles, sulci, and cisterns are normal in configuration. Pedraza- white matter differentiation is preserved. No extra-axial fluid collection is seen. Thoracic aorta: Visualized portions of the thoracic aorta are normal in caliber. The aortic arch demonstrates standard 3-vessel anatomy. Right carotid arterial system: The right common carotid artery is widely patent, as are the right internal and external carotid arteries. Mild atherosclerotic plaque is noted in the carotid bulb. Left carotid arterial system: The left common carotid artery is widely patent, as are the left internal and external carotid arteries. Mild atherosclerotic plaque is noted in the carotid bulb. Vertebral arteries: The vertebral arteries are patent bilaterally and codominant. Subclavian arteries: Widely patent bilaterally. Intracranial vasculature: There is a large right posterior communicating artery. The internal carotid arteries are patent at the skull base, as are the anterior and middle cerebral arteries bilaterally. The vertebrobasilar system and posterior cerebral arteries are widely patent. The vertebral arteries are codominant. There is no aneurysm, high-grade stenosis, or focal vessel cut off seen throughout the intracranial circulation. Jugular veins: Widely patent bilaterally. Dural sinuses: Patent. Upper chest: Partially visualized upper lobe lung parenchyma appears clear. Ther e are scattered subcentimeter mediastinal lymph nodes. Soft tissues: The visualized pharyngeal soft tissues are normal in appearance noting angiographic phase technique. The oropharyngeal airway appears widely patent. The salivary and thyroid glands are normal in appearance. No cervical lymphadenopathy is seen. Orbits: The bony orbits are intact. Orbital contents are normal in appearance. Skeletal structures: The calvarium appears intact. The cervical spine is maintained noting mild multilevel spondylosis. No lytic or blastic lesion is seen. Sinuses and mastoids: There is a 3.5 cm retention cyst in the right maxillary antrum. Trace mucosal thickening is seen in the left maxillary antrum. The remaining paranasal sinuses are clear. There is a trace right mastoid effusion. The left mastoid air cells are well pneumatized. IMPRESSION: 1. There is no hemorrhage, mass effect, or evidence of acute territorial ischemia by CT criteria. 2. Unremarkable CT angiogram of the brain. 3. Unremarkable CT angiogram of the neck. Electronically signed by: Catrachito Villalta M.D. 04/12/2019 11:56 AM MRI OF THE BRAIN WITHOUT IV CONTRAST CLINICAL HISTORY: Change in mental status. Unresponsive. COMPARISON STUDY: CT of the brain performed the same day 04/12/2019. TECHNIQUE: MRI of the brain was performed utilizing various T1 and T2-weighted sequences in the axial, sagittal, and coronal planes. IV contrast was not administered for this examination. FINDINGS: Brain parenchyma: There is a 7 mm focus of restricted diffusion identified in the left thalamus consistent with an acute to subacute lacunar infarct. No additional foci of restricted diffusion are identified. There is no hemorrhage or mass effect. There is minimal subcortical and periventricular microangiopathic change. Pedraza-white matter differentiation is preserved. No extra-axial fluid collection is seen. The cerebellar tonsils are normal in configuration. Ventricles, sulci, and cisterns: Normal in configuration. Pituitary and sella: Unremarkable. Intracranial vasculature: Normal flow voids are maintained at the skull base. Orbits: The bony orbits are grossly intact. Orbital contents are normal in appearance. Sinuses and mastoids: There is a 3.6 cm retention cyst in the right maxillary antrum. Trace mucosal thickening is seen in the left maxillary antrum. The remaining paranasal sinuses are clear. There is trace right mastoid effusion. Calvarium: Unremarkable. Cervical cord: Partially visualized cervical spinal cord is normal in morphology and signal intensity. IMPRESSION: 1. There is a 7 mm focus of restricted diffusion identified in the left thalamus consistent with an acute to subacute lacunar infarct. 2. No additional foci of restricted diffusion are identified. 3. There is no hemorrhage or mass effect. Electronically signed by: Catrachito Villalta M.D. 04/12/2019 1:55 PM ECG Data Attestation: I personally reviewed and interpreted this ECG as follows: Indication: other (unresponsive) Rate (beats per minute): 70 Rhythm: normal sinus Findings: + other (normal intervals); no PVC, no ST depression, no ST elevation and no acute ischemic change Blood Pressure Blood Pressure Findings: Elevated blood pressure Blood Pressure Disposition: elevated BP felt to be situational MDM Narrative Patient is a 53-year-old gentleman history of GERD presenting today via EMS. Ev idently around 8:00 per EMS reports he told them that he developed some right- sided deficits and a little bit of right upper arm pain and some dizziness. Came to the fire house there and EMS was bring him to the hospital when he became unresponsive for them. Placed on nonrebreather but protecting his airway. Minimally responsive to painful stimuli upon arrival. Withdrew to pain in all 4 extremities blood glucose within normal limits. There is no stigmata or history of trauma. Afebrile here. No leukocytosis. No evidence of hypercarbia. Was protecting his airway. Very quickly proceeded to CT scan without evidence of acute intracranial bleed. CT vessel studies were completed the head neck without evidence of focal occlusion. He does not really have any focal deficits on my initial exam. There is no evidence of EKG changes or troponin elevation. TSH is within normal limits. UDS was sent although no significant history of this reported. On multiple re-evaluations here the jake louis began to have improvement of symptoms is more awake and talking. Did seem to have may be a little bit of left facial droop and some weakness of the right arm and leg. Was complaining of right proximal leg pain but no significant tenderness here. Due to some concerns this could represent stroke. Again he reports onset around 8 AM however given the time course of his initial presentation does not follow within the time window that I recommend TPA. I discussed with the stroke neurologist at [facility] regarding the case given the odd course. No seizure activities reported and would seem atypical for Von's paralysis. Discussed with the stroke doctor at [facility] will give a Plavix load. MRI of the brain to be completed which did show a small stroke. Patient's family was in the department and updated several times. Patient requires admission. [facility] hospitalist contacted. Impression & Plan Altered mental status, Stroke Discharge Plan Visit Data Chief Complaint: Unresponsive ED Provider: Cezar Underwood Discharge Problem: Altered mental status, Stroke Patient Disposition: Being Evaluated by Hospitalist Forms Stand Alone Forms: My [facility] Prescriptions Prescriptions: No Action multivitamin Tablet 1 tab PO QAM RF: 0 cetirizine [Zyrtec] 10 mg Tablet 10 mg PO QAM RF: 0 pantoprazole 40 mg tablet,delayed release (DR/EC) 40 mg PO BID RF: 0 pyridoxine (vitamin B6) [Vitamin B-6] 50 mg Tablet 50 mg PO QAM RF: 0 sildenafil 100 mg tablet 100 mg PO UD RF: 0 Referrals Referrals: Winston Lopez MD [Primary Care Provider] - Discharge Problem: Altered mental status Qualifiers: Altered mental status type: unspecified Qualified Code(s): R41.82 - Altered mental status, unspecified Stroke Qualifiers: CVA mechanism: unspecified Qualified Code(s): I63.9 - Cerebral infarction, unspecified The scribe's documentation has been prepared under my direction and personally reviewed by me in its entirety. I confirm that the note above accurately reflects all work, treatment, procedures, and medical decision making performed by me.
[2019-04-12] MEDS ORDERED: PHARMACIST DISCHARGE MED REC CONSULT PRN (16:20)
[2019-04-12] MEDS ORDERED: ACETAMINOPHEN 325 MG TAB PO PRN (16:20)
[2019-04-12] MEDS ORDERED: LABETALOL HCL IV 5 MG/ML 20ML IV PRN (16:20)
[2019-04-12] MEDS: PANTOprazole 40 MG TAB PO SCH (20:05)
[2019-04-13 06:25] LABS: Hematocrit (blood only) 43.4 % (42-52); Hemoglobin 14.5 g/dL (14.0-18.0); Mean Corpuscular Hemoglobin 29.1 pg (25-34); Mean Corpuscular Hgb Conc 33.4 g/dL (32-36); Mean Corpuscular Volume 87.1 fL (80-100); Mean Platelet Volume 10.6 fL (7.4-10.4); Platelet Count 277 K/uL (130-400); RDW Coefficient of Variation 14.5 % (11.5-14.5); Red Blood Count 4.98 M/uL (4.7-6.1); White Blood Count 6.41 K/uL (4.8-10.8)
[2019-04-13 07:03] LABS: Calcium 8.2 mg/dl (8.5-10.1); Creatinine Clr Calc Pharmacy 94.5 ml/min; Est GFR (African American) 86.5; Est GFR (Non-African American) 74.6; Magnesium 2.2 mg/dl (1.8-2.4); Potassium 3.9 mmol/L (3.5-5.1)
[2019-04-13 07:10] LABS: Estimated Average Glucose 146 mg/dl; Hemoglobin A1C 6.7 % (4.5-5.6)
[2019-04-13] MEDS: ATORVASTATIN 40 MG TAB PO SCH (09:53)
[2019-04-13] MEDS: CLOPIDOGREL BISULFATE 75 MG TAB PO SCH (09:53)
[2019-04-13] MEDS: PANTOprazole 40 MG TAB PO SCH ×2 (09:53→20:55)
[2019-04-13] MEDS: ASPIRIN 81 MG ECTAB PO SCH (09:53)
--- NOTE | 2019-04-13 13:57 | Neurology Consultation ---
Date of Consultation April 13, 2019 Assessment & Plan (1) Stroke: 1. MRI - 7 mm focus restricted diffusion L thalamus/subacute lacunar infarct 2. CTA head and neck - no acute findings 3. TTE - not resulted 4. started aspirin 81 mg and plavix 75 mg continue for 21 days and then aspirin for a life time 5. optimize DM, HLD, HTN LDL <70 6. EEG- due to loss of conscience in ambulance 7. 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 ZIO as outpatient 9. PT/OT speech - discharge needs will follow up in neurology in 4-6 weeks after discharge eJanna Osborne PAC schedule. Supervising Physician Co-Signing Physician Notes I have seen and discussed above patient with Dr Jeanna Mena, neurology. Pt seen and examined, hx, er visit, imaging reviewed. By report in ER pt was minimally responsive to painful stim, then later L sided weakness. MRI L thal infarct, CTA head and neck noncontirb, echo unremark.Exam is notable for congenital (per ) flattening L NLF mild weakness r arm.R drift,decreased R BUCK and mild clumsiness. Given that L thal infarct is post circ and pt was described and minimally response raised the question whether there may have been an embolism of the basilar. P Cardiac monitoring, Zio as outpt, gradual resumption of normotension, dual anticoagulant tx as above. Hypercoag ibarra. EEG due to LOC DYANA Mena MD History of Present Illness Reason for Consultation: stroke Requesting Physician: Scotty Escobar MD Attending Physician: Scotty Escobar MD History of Present Illness Nasir is a 53 year old male with PMH GERD presented to ER for AMS. He was feeling dizzy and had blurry vision. He went to the post office and which is across from the [employer] office. They have a friend that works in the [employer] office that saw him walk across the street and saw that he was having difficulty walking. She came over and wanted to drive him home but he said is was ok. His called him and told him to go to the [facility] at [place]. She drove there and found him in his truck with the mail still in his hand. He became unresponsive and was transported to ER by EMS. During ER course pt became more alert. ER Physician reports spoke to neurologist at [place] and recommended MRI brain and load with Plavix and reports pt out of window for TPA. He remembers going to the [facility] but doesn't remember anything after that until in the ED. and daughter are in the room and state he is alot better than yesterday. He was having slowing of speech. He does not know much about family history but no personal or family history of blood clots. no family history of cardiac issues or stroke he is aware of. He was not on any blood pressure, lipid lowering medication and no on aspirin. He had a hip replacement surgery 3 years ago and still has come reduced ROM with it. denies CP, SOB, abdominal pain, one sided weakness, numbness tingling, N, V, vision loss or blurred vision, swallowing issues. Allergies Allergy/AdvReac Type Severity Reaction Status Date / Time No Known Allergies Allergy Unverified 04/12/19 12:02 Home Medications Home Medications Medication Instructions Recorded Confirmed Type cetirizine [Zyrtec] 10 mg PO QAM 04/12/19 04/12/19 History multivitamin 1 tab PO QAM 04/12/19 04/12/19 History pantoprazole 40 mg PO BID 04/12/19 04/12/19 History pyridoxine (vitamin B6) [Vitamin 50 mg PO QAM 04/12/19 04/12/19 History B-6] sildenafil 100 mg PO UD 04/12/19 04/12/19 History Patient History Medical History History of positive PPD (Chronic) treated with INH x 6 months GERD (gastroesophageal reflux disease) (Chronic) Surgical History Status post hip replacement (Chronic) Right hip; 08/28/2015 Family History Father Prostate cancer Social History Preferred Language: Central [place] Communication Ability: Effective Core Setter Required: No Beliefs That Will Affect Care: None marital status: Current Living Situation: Spouse current occupational status: employed Other Information That Helps Us Care for You: No Feels Safe at Home: Yes Safety Concerns: Feels Safe At This Time Smoking Status: Never smoker Do You Dip or Chew Tobacco: No ; Second Hand Exposure: No ; Hx Alcohol Use: Yes Alcohol type: beer Hx Substance Use: No Physical Exam Physical Exam: Physical Exam: Constitutional: appearance nourished, healthy and normal, slightly asymmetric smile ( states this is not new) Ears, Nose, Mouth and Throat: mucous membranes moist, no injection and skin normal, eyes normal Cardiovascular: normal S-1 and S-2 and regular rate and rhythm Respiratory: clear to auscultation (CTA) and no rales, rhonchi or wheeze Musculoskeletal: no peripheral edema and good distal pulses Skin: no stigmata of neurocutaneous disease noted and normal and intact Eyes: extraocular muscles intact (EOMI) and pupils equal, round and reactive to light (PERRL), gross visual cervantes intact NEUROLOGIC EXAMINATION: Mental status: Alert and interactive Oriented to full date and location. know button, stethoscope, ring, pen Oriented to person Speech fluent with no evidence of aphasia Cranial Nerves smile (chronic asymmetric) eye brow raise symmetric Reflexes: Deep tendon reflexes were symmetrical and graded 2/5. Sensory: light and cool touch intact Coordination: finger to nose intact, heel to luke unable on right due to hip surgery Gait/Stance: Posture normal. Gait normal: with steady with steps, base, turning, and tandem gait, right sided limp Motor: Negative for pronator drift of out stretched arms with eyes closed. Strength: biceps triceps hand branch director, intrisics left 5/5, right 4+/5, intrinsics 4/5, hip flex left 5/5 right 4+/5, plantar flex ext 5/5 bilaterally Results & Data Vital Signs (Past 12 Hours) Vital Signs Temp Pulse Resp BP Pulse Ox 04/13/19 10:59 36.6 C 75 18 163/98 H 96 04/13/19 07:20 36.5 C 70 16 142/96 H 93 04/13/19 03:33 36.9 C 68 15 145/94 H 94 Laboratory Results Abnormal lab results 04/13/19 04/13/19 04/13/19 Range/Units 06:09 06:09 06:09 MPV 10.6 H (7.4-10.4) fL BUN/Creatinine Ratio 8.0 L (10-20) Glucose 106 H (70-99) mg/dl Hemoglobin A1c 6.7 H (4.5-5.6) % Calcium 8.2 L (8.5-10.1) mg/dl Diagnostic Findings CT head CTA head/neck- here is no hemorrhage, mass effect, or evidence of acute territorial ischemia by CT criteria. Unremarkable CT angiogram of the brain. Unremarkable CT angiogram of the neck. MRI brain-. There is a 7 mm focus of restricted diffusion identified in the left thalamus consistent with an acute to subacute lacunar infarct. No additional foci of restricted diffusion are identified. There is no hemorrhage or mass effect. (1) Stroke CVA mechanism: unspecified Qualified Code(s): I63.9 - Cerebral infarction, unspecified
--- NOTE | 2019-04-13 19:32 | Hospitalist Progress Note ---
Date of Service April 13, 2019 Assessment & Plan (1) Stroke: Presented to ED with altered mental status, unresponsiveness, visual changes, right-sided weakness. Stroke alert called. Not candidate for thrombolytic therapy due to time of presentation. CT of brain without contrast unremarkable. CTA of intracranial and cervical vessels unremarkable. MRI of brain demonstrated 7 mm focus of restricted diffusion in the left thalamus consistent with acute to subacute ischemic lacunar infarct. EKG and cardiac monitoring demonstrate normal sinus rhythm. Echocardiogram did not show any evidence of intracardiac thrombi or [id number] shunt. Calculated LDL 111; started on high intensity statin therapy. Neurology consulted. 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 Neurology consulted. Neuro symptoms improved. Dual antiplatelet therapy with aspirin and clopidogrel for 3 weeks followed by monotherapy with aspirin recommended. Continue therapies. Outpatient cardiac monitoring to be arranged. (2) Dyslipidemia: Calculated LDL 111. Started on high intensity statin therapy with atorvastatin. (3) DVT prophylaxis: SCDs. Ambulate. (4) Discharge planning issues: Discharge disposition to be determined. Family Medicine follow-up with Dr. Lopez. Neurology follow-up with Jeanna Osborne PA-C. Subjective Recheck for stroke. Patient seen in their room around 0. Patient admitted yesterday with left thalamic ischemic stroke. Feels better today. No headache. No visual symptoms. No dysarthria, a aphasia, or dysphasia. Still has some right-sided weakness. Ambulating without too much difficulty. Review of Systems: Constitutional- no fever. Cardiac- no chest pain. Pulmonary- no cough or SOB. GI- no nausea, vomiting, diarrhea, melena, hematochezia. - no urinary symptoms. Otherwise, as noted above. Physical Exam Constitutional: no acute distress Respiratory: no respiratory distress Auscultation: lungs clear to auscultation bilaterally Cardiovascular: Rate/Rhythm: regular rate and regular rhythm Heart Sounds: no gallop, no murmur and no cardiac rub Vessels: no JVD Extremities: no calf tenderness and no edema Gastrointestinal (Abdomen): normal bowel sounds, soft, nontender, no hepatosplenomegaly Skin: no rashes, warm and dry Neurologic: Alert, oriented PRL, EOMI No facial palsy No dysarthria or aphasia Right upper extremity motor strength 4/5 Right lower extremity motor strength 4/5 Some difficulty with right [id number] and right [id number] because of motor weakness Psychiatric: Orientation: alert and oriented x 3 Results & Data Vital Signs (Past 12 Hours) Vital Signs Temp Pulse Resp BP Pulse Ox 04/13/19 15:55 36.6 C 72 20 133/94 96 04/13/19 10:59 36.6 C 75 18 163/98 H 96 Laboratory Results 04/13/19 06:09 04/13/19 06:09 (1) Stroke CVA mechanism: unspecified Qualified Code(s): I63.9 - Cerebral infarction, unspecified
[2019-04-14 07:10] LABS: Hematocrit (blood only) 47.7 % (42-52); Hemoglobin 16.2 g/dL (14.0-18.0); Mean Corpuscular Hemoglobin 29.7 pg (25-34); Mean Corpuscular Volume 87.4 fL (80-100); Mean Platelet Volume 10.8 fL (7.4-10.4); Platelet Count 291 K/uL (130-400); RDW Coefficient of Variation 14.2 % (11.5-14.5); RDW Standard Deviation 45.5 fL (36.4-46.3); Red Blood Count 5.46 M/uL (4.7-6.1)
[2019-04-14 07:50] LABS: BUN Creatinine Ratio 10.9 (10-20); Calcium 8.7 mg/dl (8.5-10.1); Creatinine Clr Calc Pharmacy 93.4 ml/min; Est GFR (African American) 85.5; Est GFR (Non-African American) 73.8
[2019-04-14] MEDS: ATORVASTATIN 40 MG TAB PO SCH (10:02)
[2019-04-14] MEDS: ASPIRIN 81 MG ECTAB PO SCH (10:02)
[2019-04-14] MEDS: CLOPIDOGREL BISULFATE 75 MG TAB PO SCH (10:02)
[2019-04-14] MEDS: PANTOprazole 40 MG TAB PO SCH ×2 (10:02→20:07)
--- NOTE | 2019-04-14 12:22 | Electroencephalogram ---
EEG Procedure Note Date of Service April 14, 2019 Start / End Times Start Time: 0800 End Time: [address] Tran History etoh withdrawal seizure Home Medication List Home Medications Medication Instructions Recorded Confirmed Type cetirizine [Zyrtec] 10 mg PO QAM 04/12/19 04/12/19 History multivitamin 1 tab PO QAM 04/12/19 04/12/19 History pantoprazole 40 mg PO BID 04/12/19 04/12/19 History pyridoxine (vitamin B6) [Vitamin 50 mg PO QAM 04/12/19 04/12/19 History B-6] sildenafil 100 mg PO UD 04/12/19 04/12/19 History Inpatient Medication List Acetaminophen (Tylenol) 650 mg PO Q4H PRN PRN Reason: Pain or Fever Stop: 05/12/19 16:19 Last Admin: 04/12/19 16:32 Dose: 650 mg Documented by: [id number] Aspirin (Ecotrin Ectab) 81 mg PO [facility] Stop: 05/13/19 08:59 Last Admin: 04/14/19 10:02 Dose: 81 mg Documented by: [id number] Admin: 04/13/19 09:53 Dose: 81 mg Documented by: [id number] Atorvastatin Calcium (Lipitor) 40 mg PO [facility] Stop: 05/13/19 08:59 Last Admin: 04/14/19 10:02 Dose: 40 mg Documented by: [id number] Admin: 04/13/19 09:53 Dose: 40 mg Documented by: [id number] Clopidogrel Bisulfate (Plavix) 75 mg PO [facility] Stop: 05/13/19 08:59 Last Admin: 04/14/19 10:02 Dose: 75 mg Documented by: [id number] Admin: 04/13/19 09:53 Dose: 75 mg Documented by: [id number] Pantoprazole Sodium (Protonix) 40 mg PO BID [facility] Stop: 05/12/19 20:59 Last Admin: 04/14/19 10:02 Dose: 40 mg Documented by: [id number] Admin: 04/13/19 20:55 Dose: 40 mg Documented by: [id number] Admin: 04/13/19 09:53 Dose: 40 mg Documented by: [id number] Admin: 04/12/19 20:05 Dose: 40 mg Documented by: [id number] Discontinued Medications Aspirin (Ecotrin) 325 mg PO QAM [facility] Stop: 05/12/19 14:29 Last Admin: 04/12/19 17:52 Dose: 325 mg Documented by: [id number] Clopidogrel Bisulfate (Plavix) 300 mg PO NOW [facility] Stop: 04/12/19 12:46 Last Admin: 04/12/19 12:52 Dose: 300 mg Documented by: [id number] Ioversol (Optiray 320 125ml) 120 ml IV ONCE PRN PRN Reason: Interaction Checking Stop: 04/16/19 11:44 Last Admin: 04/12/19 11:46 Dose: 120 ml Documented by: [id number] Description This is a 21 electrode EEG with a single channel dedicated to limited EKG. The electrodes were placed in accordance with the International 10-20 system. see other report this is a duplicate created in error
--- NOTE | 2019-04-14 12:26 | Electroencephalogram ---
EEG Procedure Note Date of Service April 14, 2019 Start / End Times Start Time: 0800 End Time: 0820 Referring Physician Jeanna Mena MD History CVA possible seizure Home Medication List Home Medications Medication Instructions Recorded Confirmed Type cetirizine [Zyrtec] 10 mg PO QAM 04/12/19 04/12/19 History multivitamin 1 tab PO QAM 04/12/19 04/12/19 History pantoprazole 40 mg PO BID 04/12/19 04/12/19 History pyridoxine (vitamin B6) [Vitamin 50 mg PO QAM 04/12/19 04/12/19 History B-6] sildenafil 100 mg PO UD 04/12/19 04/12/19 History Inpatient Medication List Acetaminophen (Tylenol) 650 mg PO Q4H PRN PRN Reason: Pain or Fever Stop: 05/12/19 16:19 Last Admin: 04/12/19 16:32 Dose: 650 mg Documented by: [id number] Aspirin (Ecotrin Ectab) 81 mg PO [facility] Stop: 05/13/19 08:59 Last Admin: 04/14/19 10:02 Dose: 81 mg Documented by: [id number] Admin: 04/13/19 09:53 Dose: 81 mg Documented by: [id number] Atorvastatin Calcium (Lipitor) 40 mg PO [facility] Stop: 05/13/19 08:59 Last Admin: 04/14/19 10:02 Dose: 40 mg Documented by: [id number] Admin: 04/13/19 09:53 Dose: 40 mg Documented by: [id number] Clopidogrel Bisulfate (Plavix) 75 mg PO [facility] Stop: 05/13/19 08:59 Last Admin: 04/14/19 10:02 Dose: 75 mg Documented by: [id number] Admin: 04/13/19 09:53 Dose: 75 mg Documented by: [id number] Pantoprazole Sodium (Protonix) 40 mg PO BID [facility] Stop: 05/12/19 20:59 Last Admin: 04/14/19 10:02 Dose: 40 mg Documented by: [id number] Admin: 04/13/19 20:55 Dose: 40 mg Documented by: [id number] Admin: 04/13/19 09:53 Dose: 40 mg Documented by: [id number] Admin: 04/12/19 20:05 Dose: 40 mg Documented by: [id number] Discontinued Medications Aspirin (Ecotrin) 325 mg PO QAM [facility] Stop: 05/12/19 14:29 Last Admin: 04/12/19 17:52 Dose: 325 mg Documented by: [id number] Clopidogrel Bisulfate (Plavix) 300 mg PO [facility] Stop: 04/12/19 12:46 Last Admin: 04/12/19 12:52 Dose: 300 mg Documented by: [id number] Ioversol (Optiray 320 125ml) 120 ml IV ONCE PRN PRN Reason: Interaction Checking Stop: 04/16/19 11:44 Last Admin: 04/12/19 11:46 Dose: 120 ml Documented by: [id number] Description This is a 21 electrode EEG with a single channel dedicated to limited EKG. The electrodes were placed in accordance with the International 10-20 system.This EEG is performed during wakefulness and is of good technical quality. Photic stimulation is performed. Drowsiness and light sleep are not obtained. During wakefulness there is evidence for a normal background rhythm in the alpha range of up to 10 Hz and maximum frequency and of up to 30 V maximum amplitude. This is maximum and posterior head regions and bilaterally symmetrical. Polymorphic mid frequency theta activity of moderate voltage is seen over all head regions without clear focal regional predominance beta activity seen bifrontally and symmetrically. Photic stimulation provokes a normal driving response without a photo myogenic photoparoxysmal component No time during the waking tracing is or evidence for potentially epileptogenic activity Interpretation This is a normal EEG without evidence for focal or generalized encephalopathy and without evidence for potentially epileptogenic activity Clinical Correlation Normal EEG during wakefulness without evidence for potential seizure activity does not absolutely exclude the diagnosis of seizure disorder and clinical correlation is required Scotty Ng MD
--- NOTE | 2019-04-14 12:53 | Neurology Progress Note ---
Date of Service April 14, 2019 Assessment & Plan (1) Stroke: 1. MRI - 7 mm focus restricted diffusion L thalamus/subacute lacunar infarct 2. CTA head and neck - no acute findings 3. TTE - no ASD EF 65-70% 4. started aspirin 81 mg and plavix 75 mg continue for 21 days and then aspirin for a life time 5. optimize DM, HLD, HTN LDL <70 6. EEG- due to loss of conscience in ambulance 7. 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 ZIO as outpatient 9. PT/OT speech - discharge needs 10. hypercoag work up will follow up as outpatient will follow up in neurology in 4-6 weeks after discharge Jeanna Osborne PAC schedule. Supervising Physician Co-Signing Physician Notes I have seen and discussed above patient with Dr Scotty Ng, neurology Subjective Nasir is a 53 year old male with PMH GERD presented to ER for AMS. He was feeling dizzy and had blurry vision. He went to the post office and which is across from the [employer] office. They have a friend that works in the [employer] office that saw him walk across the street and saw that he was having difficulty walking. She came over and wanted to drive him home but he said is was ok. His called him and told him to go to the [employer] at [place]. She drove there and found him in his truck with the mail still in his hand. He became unresponsive and was transported to ER by EMS. During ER course pt became more alert. ER Physician reports spoke to neurologist at [place] and recommended MRI brain and load with Plavix and reports pt out of window for TPA. He remembers going to the [employer] but doesn't remember anything after that until in the ED. and daughter are in the room and state he is alot better than yesterday. He was having slowing of speech. He does not know much about family history but no personal or family history of blood clots. no family history of cardiac issues or stroke he is aware of. He was not on any blood pressure, lipid lowering medication and no on aspirin. He had a hip replacement surgery 3 years ago and still has come reduced ROM with it. Today he thinks the weakness in arm and leg is better. no further slurring of speech. is in the room and states he may go to inpatient rehab they are not sure yet. denies CP, SOB, abdominal pain, one sided weakness, numbness tingling, N, V, vision loss or blurred vision, swallowing issues. 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/biceps/triceps deltoid 4+/5 hip flex 4/5- hip surgery and some pain with movement sensation intact Results & Data Vital Signs (Past 12 Hours) Vital Signs Temp Pulse Pulse Resp BP Pulse Ox 04/14/19 11:40 36.6 C 67 16 121/79 97 04/14/19 08:00 75 04/14/19 07:40 36.5 C 65 16 147/95 H 96 04/14/19 03:06 36.4 C L 68 18 134/79 96 Laboratory Results Abnormal lab results 04/14/19 04/14/19 Range/Units 06:37 06:37 MPV 10.8 H (7.4-10.4) fL Glucose 112 H (70-99) mg/dl Diagnostic Findings Normal EEG during wakefulness without evidence for potential seizure activity does not absolutely exclude the diagnosis of seizure disorder and clinical correlation is required (1) Stroke CVA mechanism: unspecified Qualified Code(s): I63.9 - Cerebral infarction, unspecified
--- NOTE | 2019-04-14 19:46 | Hospitalist Progress Note ---
Date of Service April 14, 2019 Assessment & Plan (1) Stroke: Presented to ED with altered mental status, unresponsiveness, visual changes, right-sided weakness. Stroke alert called. Not candidate for thrombolytic therapy due to time of presentation. CT of brain without contrast unremarkable. CTA of intracranial and cervical vessels unremarkable. MRI of brain demonstrated 7 mm focus of restricted diffusion in the left thalamus consistent with acute to subacute ischemic lacunar infarct. EKG and cardiac monitoring demonstrate normal sinus rhythm. Echocardiogram did not show any evidence of intracardiac thrombi or ixjvg-yv-[id number] shunt. Calculated LDL 111; started on high intensity statin therapy. Neurology consulted. 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 OT recommends inpatient rehab. Neurology consulted. Neuro symptoms improved. Dual antiplatelet therapy with aspirin and clopidogrel for 3 weeks followed by monotherapy with aspirin recommended. Continue therapies. Outpatient cardiac monitoring to be arranged. (2) Dyslipidemia: Calculated LDL 111. Started on high intensity statin therapy with atorvastatin. (3) Hip pain, right: Check plain films. (4) DVT prophylaxis: SCDs. Ambulate. (5) Discharge planning issues: OT recommends inpatient rehab. Patient prefers [facility] in [place]- closer to home. Family Medicine follow-up with Dr. Lopez. Neurology follow-up with Jeanna Osborne PA-C. Subjective Recheck for stroke. Patient seen in their room around 1540. Patient admitted 04/12 with left thalamic ischemic stroke. No headache. No visual symptoms. No dysarthria, a aphasia, or dysphasia. Still has some right-sided weakness and coordination difficulties with right upper extremity. Ambulating without too much difficulty. Experiencing right hip pain. Not aware of any trauma. Review of Systems: Constitutional- no fever. Cardiac- no chest pain. Pulmonary- no cough or SOB. GI- no nausea, vomiting, diarrhea, melena, hematochezia. - no urinary symptoms. Otherwise, as noted above. Physical Exam Constitutional: no acute distress Respiratory: no respiratory distress Auscultation: lungs clear to auscul tation bilaterally Cardiovascular: Rate/Rhythm: regular rate and regular rhythm Heart Sounds: no gallop, no murmur and no cardiac rub Vessels: no JVD Extremities: no calf tenderness and no edema Gastrointestinal (Abdomen): normal bowel sounds, soft, nontender, no hepatosplenomegaly Musculoskeletal: Extremities: + extremities abnormal to inspection (right hip pain with flexion and external rotation) Skin: no rashes, warm and dry Psychiatric: Orientation: alert and oriented x 3 Results & Data Vital Signs (Past 12 Hours) Vital Signs Temp Pulse Pulse Resp BP Pulse Ox 04/14/19 18:43 36.7 C 67 18 138/86 95 04/14/19 15:07 36.6 C 69 18 135/90 96 04/14/19 11:40 36.6 C 67 16 121/79 97 04/14/19 08:00 75 Laboratory Results 04/14/19 06:37 04/14/19 06:37 (1) Stroke CVA mechanism: unspecified Qualified Code(s): I63.9 - Cerebral infarction, unspecified
--- NOTE | 2019-04-14 21:26 | XRay Report ---
XR hip RT 2-3V w pelvis CLINICAL HISTORY: Right hip pain. COMPARISON: None FINDINGS: Sacroiliac joints and symphysis pubis are intact. Alignment of the total right hip arthrop lasty is anatomic. There is no periprosthetic fracture or periprosthetic lucency. IMPRESSION: 1. No acute fracture within the pelvis or hips. 2. Status post total right hip arthroplasty. Hardware intact. No periprosthetic fracture or lucency. Electronically signed by: Wilfredo Hopkins M.D. 04/14/2019 9:25 PM
[2019-04-15] MEDS: ASPIRIN 81 MG ECTAB PO SCH (08:50)
[2019-04-15] MEDS: ATORVASTATIN 40 MG TAB PO SCH (08:53)
[2019-04-15] MEDS: CLOPIDOGREL BISULFATE 75 MG TAB PO SCH (10:47)
[2019-04-15] MEDS: PANTOprazole 40 MG TAB PO SCH ×2 (10:47→20:46)
--- NOTE | 2019-04-15 13:10 | Hospitalist Progress Note ---
Date of Service April 15, 2019 Assessment & Plan (1) Stroke: Presented to ED with altered mental status, unresponsiveness, visual changes, right-sided weakness. Stroke alert called. Not candidate for thrombolytic therapy due to time of presentation. CT of brain without contrast unremarkable. CTA of intracranial and cervical vessels unremarkable. MRI of brain demonstrated 7 mm focus of restricted diffusion in the left thalamus consistent with acute to subacute ischemic lacunar infarct. EKG and cardiac monitoring demonstrate normal sinus rhythm. Echocardiogram did not show any evidence of intracardiac thrombi or [id number]-[id number] shunt. Calculated LDL 111; started on high intensity statin therapy. Neurology consulted. EEG negative. PT, OT, ECHOCARDIOGRAPH TECHNICIAN evaluations done. OT recommends inpatient rehab. Neurology recommends dual antiplatelet therapy with aspirin and clopidogrel for 3 weeks followed by monotherapy with aspirin. Outpatient cardiac monitoring to be arranged. (2) Dyslipidemia: Calculated LDL 111. Started on high intensity statin therapy with atorvastatin. (3) Hip pain, right: Patient complained of right hip pain. Status post right total hip arthroplasty. No apparent trauma. Plain films demonstrated hardware from right QUENTIN without apparent fracture or dislocation. Symptoms improving. (4) DVT prophylaxis: SCDs. Ambulate. (5) Discharge planning issues: OT recommends inpatient rehab. Patient prefers [facility] in [place]- closer to home. Case Management assisting with disposition. Family Medicine follow-up with Dr. Lopez. Neurology follow-up with Jeanna Osborne PA-C. Patient understands that he may not drive for 6 months due to a stroke and loss of consciousness. Paperwork for disability and FMLA completed and faxed/emailed to [facility] and employer. [employer] form completed as well. Subjective Recheck for stroke. Patient seen in their room around 0930. Patient admitted 04/12 with left thalamic ischemic stroke. Doing well. No headache. No visual symptoms. No dysarthria, aphasia, or dysphasia. Still has some right-sided weakness and coordination difficulties with right upper extremity. Still having right hip pain, not as severe. Review of Systems: Constitutional- no fever. Cardiac- no chest pain. Pulmonary- no cough or SOB. GI- no nausea, vomiting, diarrhea, melena, hematochezia. - no urinary symptoms. Otherwise, as noted above. Physical Exam Constitutional: no acute distress Respiratory: no respiratory distress Auscultation: lungs clear to auscultation bilaterally Cardiovascular: Rate/Rhythm: regular rate and regular rhythm Heart Sounds: no gallop, no murmur and no cardiac rub Vessels: no JVD Extremities: no calf tenderness and no edema Gastrointestinal (Abdomen): normal bowel sounds, soft, nontender, no hepatosplenomegaly Musculoskeletal: Extremities: + extremities abnormal to inspection (right hip pain with flexion and external rotation) Skin: no rashes, warm and dry Neurologic: PERRL, EOMI no facial palsy no dysarthria or aphasia RUE 4/5 RLE 4/5 some difficulty with right finger to nose right plantar reflex upgoing Psychiatric: Orientation: alert and oriented x 3 Results & Data Vital Signs (Past 12 Hours) Vital Signs Temp Pulse Resp BP Pulse Ox 04/15/19 11:59 36.8 C 76 18 150/99 H 97 04/15/19 07:01 37.0 C 73 16 150/92 H 97 04/15/19 04:12 36.5 C 69 16 158/96 H 97 (1) Stroke CVA mechanism: unspecified Qualified Code(s): I63.9 - Cerebral infarction, unspecified
[2019-04-16] MEDS: CLOPIDOGREL BISULFATE 75 MG TAB PO SCH (08:02)
[2019-04-16] MEDS: ATORVASTATIN 40 MG TAB PO SCH (08:02)
[2019-04-16] MEDS: PANTOprazole 40 MG TAB PO SCH ×2 (08:03→21:00)
[2019-04-16] MEDS: ASPIRIN 81 MG ECTAB PO SCH (08:03)
--- NOTE | 2019-04-16 08:33 | Hospitalist Progress Note ---
Date of Service April 16, 2019 Assessment & Plan (1) Stroke: Presented to ED with altered mental status, unresponsiveness, visual changes, right-sided weakness. Not candidate for thrombolytic therapy due to time of presentation. CT of brain without contrast unremarkable. CTA of intracranial and cervical vessels unremarkable. MRI of brain demonstrated 7 mm focus of restricted diffusion in the left thalamus consistent with acute to subacute ischemic lacunar infarct. EKG and cardiac monitoring demonstrated normal sinus rhythm. Echocardiogram did not show any evidence of intracardiac thrombi or wfdus-[id number] shunt. Calculated LDL 111; started on high intensity statin therapy. Neurology consulted. EEG negative. PT, OT, TARGET DEVELOPER evaluations done. OT recommends inpatient rehab. Neurology recommends dual antiplatelet therapy with aspirin and clopidogrel for 3 weeks followed by monotherapy with aspirin. Outpatient cardiac monitoring (e.g., ZIO patch) to be arranged. (2) Dyslipidemia: Calculated LDL 111. Started on high intensity statin therapy with atorvastatin. (3) Hip pain, right: Patient complained of right hip pain. Status post right total hip arthroplasty. No apparent trauma. Plain films demonstrated hardware from right QUENTIN without apparent fracture or dislocation. Symptoms improving. Consult Ortho if ongoing concerns. (4) DVT prophylaxis: SCDs. Ambulate. (5) Discharge planning issues: OT recommends inpatient rehab. Patient prefers [facility] in [place]- closer to home. Case Management assisting with disposition. Waiting for insurance auth. Family Medicine follow-up with Dr. Lopez. Neurology follow-up with Jeanna Osborne PA-C. Patient understands that he may not drive for 6 months due to a stroke and loss of consciousness. Paperwork for disability and FMLA completed and faxed/emailed to [facility] and employer. [employer] form completed as well. Subjective Recheck for stroke. Patient seen in their room around 0800. Doing well. No headache. No visual symptoms. No dysarthria, aphasia, or dysphasia. Still has some right-sided weakness and coordination difficulties with right upper extremity. Right hip pain improved. Review of Systems: Constitutional- no fever. Cardiac- no chest pain. Pulmonary- no cough or SOB. GI- no nausea, vomiting, diarrhea, melena, hematochezia. - no urinary symptoms. Otherwise, as noted above. Physical Exam Constitutional: no acute distress Respiratory: no respiratory distress Auscultation: lungs clear to auscultation bilaterally Cardiovascular: Rate/Rhythm: regular rate and regular rhythm Heart Sounds: no gallop, no murmur and no cardiac rub Vessels: no JVD Extremities: no calf tenderness and no edema Gastrointestinal (Abdomen): normal bowel sounds, soft, nontender, no hepatosplenomegaly Skin: no rashes, warm and dry Neurologic: PERRL, EOMI no facial palsy no dysarthria or aphasia right permanent waver 4/5 RLE 4/5 prox Psychiatric: Orientation: alert and oriented x 3 Results & Data Vital Signs (Past 12 Hours) Vital Signs Temp Pulse Resp BP Pulse Ox 04/16/19 07:26 36.7 C 66 16 150/93 H 96 04/15/19 23:30 36.6 C 71 18 132/85 97 (1) Stroke CVA mechanism: unspecified Qualified Code(s): I63.9 - Cerebral infarction, unspecified
[2019-04-17] MEDS: CLOPIDOGREL BISULFATE 75 MG TAB PO SCH (08:45)
[2019-04-17] MEDS: ASPIRIN 81 MG ECTAB PO SCH (08:45)
[2019-04-17] MEDS: ATORVASTATIN 40 MG TAB PO SCH (08:45)
[2019-04-17] MEDS: PANTOprazole 40 MG TAB PO SCH (08:45)
--- NOTE | 2019-04-17 17:45 | Hospitalist Progress Note ---
Date of Service April 17, 2019 Assessment & Plan (1) Stroke: Presented to ED with altered mental status, unresponsiveness, visual changes, right-sided weakness. Not candidate for thrombolytic therapy due to time of presentation. CT of brain without contrast unremarkable. CTA of intracranial and cervical vessels unremarkable. MRI of brain demonstrated 7 mm focus of restricted diffusion in the left thalamus consistent with acute to subacute ischemic lacunar infarct. EKG and cardiac monitoring demonstrated normal sinus rhythm. Echocardiogram did not show any evidence of intracardiac thrombi or [id number]-[id number] shunt. Calculated LDL 111; started on high intensity statin therapy. Neurology consulted. EEG negative. PT, OT, OCEAN EXPORT COORDINATOR evaluations done. OT recommends inpatient rehab. Neurology recommends dual antiplatelet therapy with aspirin and clopidogrel for 3 weeks followed by monotherapy with aspirin. Outpatient cardiac monitoring (e.g., ZIO patch) to be arranged. (2) Dyslipidemia: Calculated LDL 111. Started on high intensity statin therapy with atorvastatin. (3) Hip pain, right: Patient complained of right hip pain. Status post right total hip arthroplasty. No apparent trauma. Plain films demonstrated hardware from right QUENTIN without apparent fracture or dislocation. Symptoms improved. Consult Ortho if ongoing concerns. (4) Elevated blood pressure reading: Initial blood pressure 180/115 in the setting of an acute stroke. Permissive hypertension was allowed. Blood pressure subsequently improved. Blood pressures day of discharge 117/79, 127/62. No need for antihypertensive therapy at this time. Continue to follow blood pressures. (5) Hyperglycemia: Fasting blood sugar slightly elevated at 106, 112. Hemoglobin A1c 6.7. Follow. (6) DVT prophylaxis: SCDs. Ambulate. (7) Discharge planning issues: OT initially recommended inpatient rehab. Patient preferred [facility] in [place]- closer to home. Case Management assisted with disposition. Neuro status improved and patient back to baseline. No need for inpatient rehab or ongoing outpatient therapies. Discharge to home. Family Medicine follow-up with Dr. Lopez. Neurology follow-up with Jeanna Osborne PA-C. Patient understands that he may not drive for 6 months due to a stroke and loss of consciousness. Paperwork for disability and FMLA completed and faxed/emailed to [facility] and employer. [employer] form completed as well. Subjective Recheck for stroke. Patient seen in their room around 1110. Doing well. No headache. No visual symptoms. No dysarthria, aphasia, or dysphasia. Right-sided weakness resolved. No problems with coordination of RUE. Ambulating without difficulty. Right hip pain essentially resolved. Review of Systems: Constitutional- no fever. Cardiac- no chest pain. Pulmonary- no cough or SOB. GI- no nausea, vomiting, diarrhea, melena, hematochezia. - no urinary symptoms. Otherwise, as noted above. Physical Exam Constitutional: no acute distress Respiratory: no respiratory distress Auscultation: lungs clear to auscultation bilaterally Cardiovascular: Rate/Rhythm: regular rate and regular rhythm Heart Sounds: no gallop, no murmur and no cardiac rub Vessels: no JVD Extremities: no calf tenderness and no edema Gastrointestinal (Abdomen): normal bowel sounds, soft, nontender, no hepatosplenomegaly Skin: no rashes, warm and dry Neurologic: alert, oriented PERRL, EOMI no facial palsy no dysarthria or aphasia tongue midline. motor upper and lower extremities 5/5 bilat no difficulty with finger--nose Psychiatric: Orientation: alert and oriented x 3 Results & Data Vital Signs (Past 12 Hours) Vital Signs Temp Pulse Pulse Resp BP Pulse Ox 04/17/19 17:15 36.9 C 68 64 20 127/62 98 04/17/19 14:39 36.9 C 68 20 127/62 98 04/17/19 07:00 36.5 C 65 18 117/79 92 (1) Stroke CVA mechanism: unspecified Qualified Code(s): I63.9 - Cerebral infarction, unspecified
[2019-04-17] MEDS ORDERED: STROKE PATIENT DISCHARGE STA (17:58)
--- NOTE | 2019-04-17 19:06 | Pharmacy Report ---
Pharmacist Stroke Counseling - Date of Service April 17, 2019 - Scope: Pharmacy has been consulted to provide medication discharge counseling for this patient admitted with ischemic stroke as per the Pharmacist Discharge Counseling for Stroke Patients Protocol. - Medications on Discharge: Home Medications Medication Instructions Recorded Confirmed cetirizine [Zyrtec] 10 mg PO QAM 04/12/19 04/12/19 multivitamin 1 tab PO QAM 04/12/19 04/12/19 pantoprazole 40 mg PO BID 04/12/19 04/12/19 pyridoxine (vitamin B6) [Vitamin 50 mg PO QAM 04/12/19 04/12/19 B-6] sildenafil 100 mg PO UD 04/12/19 04/12/19 New Rx's Medication Instructions Recorded aspirin [Ecotrin Low Strength] 81 mg PO QAM #30 tab 04/17/19 atorvastatin 40 mg PO QAM #30 tab 04/17/19 clopidogrel 75 mg PO QAM #16 tab 04/17/19 - Action: The above medications, specifically ones for stroke treatment/prophylaxis, have been reviewed in detail with the patient and/or patient union contract representative(s) prior to discharge. This includes indication, common adverse reactions, drug interactions, and medication administration. Medication counseling has been employed using the teach-back method to ensure understanding. - Outcome: The patient and/or patient union contract representative(s) have demonstrated understanding of the medications. Please note, they are aware that the pharmacist will call them within 72 hours post-discharge to confirm that the appropriate medications are being taken and answer any further medication related questions the patient might have at that time. Contact information Individual to be contacted: Nasir Piña Relationship to patient (if applicable): Self Phone number: [phone] Best time to call: Any time Additional comments: * Met with patient and daughter at bedside prior to discharge. His daughter is an SOCIAL DIRECTOR. * Patient states this was his first stroke and understands the importance of taking medications to prevent stroke. He was mainly taking vitamins/OTC prior to admission with the exception of Protonix, which he takes BID. He has been on high dose PPI for "years" - denies history of GI bleed, ulcer, etc... anish mmend that he discuss with PCP to reassess dosing of Protonix. * Reviewed adverse effects of Plavix + aspirin and atorvastatin. He understands to monitor for s/sx bleeding/bruising and myopathy. He will call his provider if any major problems. He understands to take Plavix + aspirin for a total of 3 weeks (16 days left per Rx of Plavix sent to his pharmacy), then will be on aspirin monotherapy lifelong. Thank you for allowing pharmacy to be involved in the care of this patient. Please call [phone] or [phone] with any additional questions
--- NOTE | 2019-04-18 09:01 | Discharge Summary ---
Date of Service Date of Admission: 04/12/19 Date of Discharge: 04/17/19 Admission HPI Per Admitting Provider Pt is 53 y/o M with PMH GERD presented to ER for altered mental status unresponsive episode. Pt states around approx. 8:00am this morning pt was feeling dizzy adn had blurry vision. States he completed some errands and symptoms were worse and went to his local [facility] [place]. It is reported he was not acting right, had altered mental status and there was question of right sided weakness. Reported he became unresponsive and was transported to ER by EMS. During ER course pt became more alert. ER Physician reports spoke to neurologist at [facility] and recommended MRI brain and load with Plavix and reports pt out of window for TPA. Pt states he remembers going to the [place] but doesn't remember anything after that until now in ER. He is now A&O x 3. Denies any current vision changes. Has right arm and leg weakness and some right finger paresthesias. Denies head injury, fever/chills, diaphoresis, N/V/D/C, MARTINI, neck pain, CP, SOB, orthopnea, palpitations, cough, sore throat, choking, otalgia, rhinorrhea, abdominal pain, extremity edema, rashes, urinary symptoms. Admission Exam Per Admitting Provider Pt is 53 y/o M with PMH GERD presented to ER for altered mental status unresponsive episode. Pt states around approx. 8:00am this morning pt was feeling dizzy adn had blurry vision. States he completed some errands and symptoms were worse and went to his local [facility] [place]. It is reported he was not acting right, had altered mental status and there was question of right sided weakness. Reported he became unresponsive and was transported to ER by EMS. During ER course pt became more alert. ER Physician reports spoke to neurologist at [facility] and recommended MRI brain and load with Plavix and reports pt out of window for TPA. Pt states he remembers going to the [place] but doesn't remember anything after that until now in ER. He is now A&O x 3. Denies any current vision changes. Has right arm and leg weakness and some right finger paresthesias. Denies head injury, fever/chills, diaphoresis, N/V/D/C, MARTINI, neck pain, CP, SOB, orthopnea, palpitations, cough, sore throat, choking, otalgia, rhinorrhea, abdominal pain, extremity edema, rashes, urinary symptoms. Principal Diagnosis acute ischemic stroke, left thalamus Discharge Data Allergies Allergy/AdvReac Type Severity Reaction Status Date / Time No Known Allergies Allergy Unverified 04/12/19 12:02 Consultations 04/12/19 13:10 ED Decision to Admit Stat 04/12/19 16:20 Consult Case Management - Discharge Planning Routine Consult Neurology Routine Ordered Studies 04/12/19 11:22 CT angio head w con Stat CT angio neck with con Stat CT head/brain wo con Stat 04/12/19 12:53 MR brain wo con Stat Hospital Course (1) Stroke: Presented to ED with altered mental status, unresponsiveness, visual changes, right-sided weakness. Not candidate for thrombolytic therapy due to time of presentation. CT of brain without contrast unremarkable. CTA of intracranial and cervical vessels unremarkable. MRI of brain demonstrated 7 mm focus of restricted diffusion in the left thalamus consistent with acute to subacute ischemic lacunar infarct. EKG and cardiac monitoring demonstrated normal sinus rhythm. Echocardiogram did not show any evidence of intracardiac thrombi or [id number] shunt. Calculated LDL 111; started on high intensity statin therapy. Neurology consulted. EEG negative. PT, OT, UNDERLINER evaluations done. OT recommends inpatient rehab. Neurology recommends dual antiplatelet therapy with aspirin and clopidogrel for 3 weeks followed by monotherapy with aspirin. Outpatient cardiac monitoring (e.g., ZIO patch) to be arranged. (2) Dyslipidemia: Calculated LDL 111. Started on high intensity statin therapy with atorvastatin. (3) Hip pain, right: Patient complained of right hip pain. Status post right total hip arthroplasty. No apparent trauma. Plain films demonstrated hardware from right QUENTIN without apparent fracture or dislocation. Symptoms improved. Consult Ortho if ongoing concerns. (4) Elevated blood pressure reading: Initial blood pressure 180/115 in the setting of an acute stroke. Permissive hypertension was allowed. Blood pressure subsequently improved. Blood pressures day of discharge 117/79, 127/62. No need for antihypertensive therapy at this time. Continue to follow blood pressures. (5) Hyperglycemia: Fasting blood sugar slightly elevated at 106, 112. Hemoglobin A1c 6.7. Follow. (6) DVT prophylaxis: SCDs. Ambulate. (7) Discharge planning issues: OT initially recommended inpatient rehab. Case Management assisted with disposition. Neuro status improved and essentially back to baseline by discharge. No need for inpatient rehab or ongoing outpatient therapies. Discharged to home. Family Medicine follow-up with Dr. Lopez. Neurology follow-up with Jeanna Osborne PA-C. Patient understands that he may not drive for 6 months due to stroke and loss of consciousness. Paperwork for disability and FMLA completed and faxed/emailed to [facility] and employer. [employer] form completed as well. Total Time Total Time Spent Total Time Spent (In Minutes): 40 Discharge Plan Discharge Items Patient Disposition: Home - Self-Care Reason For Visit: STROKE Discharge Diagnosis: stroke Condition: Good Discharge Goals: Improve disease control and Improve function Activity: As commented below Lifting: Gradually increase as tolerated Exercise/Sports: Gradually increase as tolerated Driving/Machine Use Comment: no driving until Neurology and [employer] say OK Non-emergency contact: Primary Care Provider, Hospitalist and Neurologist Call non-emergency contact if: you have any medication questions and your symptoms worsen Follow-up/Referrals: Winston Lopez MD [Primary Care Provider] - (04/20/2019 11:00 AM Winston Lopez MD) Diet: Heart Healthy Addtl Provider Instructions: MEDICATION CHANGES: NEW MEDICATIONS aspirin 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 CT angiogram did not show any significant blockage in carotid arteries in neck. Ultrasound of heart looked good. Electrocardiogram showed regular rhythm. LDL cholesterol level was 111. Tests related to diabetes were borderline high. Fasting blood sugars were 106, 112. Hemoglobin A1C was 6.7. PENDING TEST RESULTS: Tests looking for conditions that can cause blood clots and strokes. Neurology can review results with you when you are seen in clinic. RECOMMENDATIONS FOR FOLLOW-UP: Please ask Dr. Lopez to make referral for follow-up with Jeanna Osborne PA-C in Neurology in about 4 weeks. OTHER INSTRUCTIONS: Your blood pressure was high at times and relatively low at other times. No blood pressure medications at this time. Have Dr. Lopez keep an eye on your blood pressures. Blood sugars and hemoglobin A1C were slightly high. Watch your diet and stay active. Have Dr. Lopez keep watch your blood sugars. Seek medical attention if you have: * temperature above 101 * chest pain or trouble breathing * abdominal pain, nausea, vomiting * diarrhea, dark stools or bloody stools * any unanswered questions or concerns Call 911 if symptoms are severe. Please take good care of yourself. Call if you have any questions or problems. You can reach a [facility] hospitalist on duty at [facility] 24 hours a day by calling [phone]. My cell # is [phone]. STROKE INSTRUCTIONS Risk Factors for Stroke: You can reduce your chances of stroke by working with your medical provider to adopt a healthy lifestyle. Some specific ways to lower your chance of stroke are: * If you are a smoker, now is the time to stop smoking cigarettes * If you are diabetic, improve the control of your blood sugars * Avoid excessive amounts of alcohol * Control high blood pressure * Lose weight if you are overweight * Be sure to lead an active lifestyle * Eat a healthy diet low in salt, cholesterol and fat You should know about other risk factors for stroke that you are unable to control. These include: * Age 55 years or older * Male gender * Certain racial groups: , or / * Family History of Stroke, Mini stroke or Heart Attack * Sickle Cell Disease Follow Up: It is important for you to keep your follow up appointments with your medical provider. Who to Call and When: Medical Emergencies: Call 911 immediately if you experience any of the following warning signs and symptoms of Stroke: * Sudden numbness or weakness of the face, arm or leg, especially on one side of the body * Sudden confusion, trouble speaking or understanding * Sudden trouble seeing in one or both eyes * Sudden trouble walking, dizziness, loss of balance or coordination * Sudden severe headache with no cause Do not delay calling 911 if you experience any warning signs or symptoms of a stroke. Delay in seeking medical attention may affect what treatments can be given to you. . Prescriptions: New aspirin [Ecotrin Low Strength] 81 mg Tablet,Delayed Release (Dr/Ec) 81 mg PO QAM Qty: 30 RF: 12 clopidogrel 75 mg Tablet 75 mg PO QAM Qty: 16 RF: 0 atorvastatin 40 mg Tablet 40 mg PO QAM Qty: 30 RF: 5 Continued multivitamin Tablet 1 tab PO QAM RF: 0 cetirizine [Zyrtec] 10 mg Tablet 10 mg PO QAM RF: 0 pantoprazole 40 mg tablet,delayed release (DR/EC) 40 mg PO BID RF: 0 pyridoxine (vitamin B6) [Vitamin B-6] 50 mg Tablet 50 mg PO QAM RF: 0 sildenafil 100 mg tablet 100 mg PO UD RF: 0 Stand-Alone Forms: Medications to Prevent Stroke, Work/School Release (ED), [facility]/Other Patient Handouts: Diabetes Fpc Complications, Diabetes Healthy Meals, Diabetes Carbs, Diabetes Exercise Benefits, Diabetes Exercise Get Started, Diabetes Activity Tips, Diabetes Manage A1C Test Discharge Orders: Discharge Order (Routine); Ordered 04/17/19 Ordered By: Scotty Escobar Admission Data Admit Date/Time: 04/12/19 14:29 Attending Provider: Scotty Escobar Admit Provider: Mike Brown Primary Care Provider: Winston Lopez Other Providers: Mkie Brown ; Jeanna Mena Service: Telemetry Medical Other Interventions: Discharge Summary Assessment (RN) Last Done: 04/17/19 18:08 DC Date/Time DO NOT enter until pt leaves facility: 04/17/19 18:38
[2019-04-19 04:53] LABS: Anti Cardiolipin Ab IgG <14 GPL (< = 14); Anti Cardiolipin Ab IgM <12 MPL (< = 12); Anti-Cardiolipin Ab IgA <11 APL (< = 11); Anti-Thrombin III Activity 94 % activity (80-120); Lupus Anticoagulant Negative (Negative); Protein S Functional(Activity) 117 % (70-150)
--- NOTE | 2019-04-20 14:06 | Pharmacy Report ---
Pharmacist Post D/C Phone Note - Phone Note: Date of phone call: April 20, 2019. Individual with whom pharmacist spoke to: ALIYAH BURR The following questions were reviewed during the phone call with responses listed below each: Can you tell me the medications that you are currently taking as well as when and how you take each medication? -Patient confirmed frequency and doses of aspirin, atorvastatin, and clopidogrel When have you missed any doses of your medications? - No What side effects are you having from your medications, specifically, the new medications you were started on? - None What questions do you have about your medications? - None What problems are you having obtaining your medications? - None When is your next appointment with your primary care doctor? - Just had the appointment today - heart monitor device placed for 2 weeks, will be seen again June 26. Did not discuss PPI discontinuation/taper with his PCP. noted intent to discuss with him at the next appointment. I also counseled that a slow taper will likely be in his benefit if the PPI is discontinued to prevent rebound acid production in his stomach. acknowledged understanding. Additional comments: - seemed comfortable with his new medications and was cooperative with interview. No new concerns identified. As per the Pharmacist Discharge Counseling for Stroke Patients Protocol, this phone call has been completed within 72 hours of discharge. Thank you for allowing us to be involved in the care of this patient. - Home Medications: Home Medications Medication Instructions Recorded Confirmed cetirizine [Zyrtec] 10 mg PO QAM 04/12/19 04/12/19 multivitamin 1 tab PO QAM 04/12/19 04/12/19 pantoprazole 40 mg PO BID 04/12/19 04/12/19 pyridoxine (vitamin B6) [Vitamin 50 mg PO QAM 04/12/19 04/12/19 B-6] sildenafil 100 mg PO UD 04/12/19 04/12/19 New Rx's Medication Instructions Recorded aspirin [Ecotrin Low Strength] 81 mg PO QAM #30 tab 04/17/19 atorvastatin 40 mg PO QAM #30 tab 04/17/19 clopidogrel 75 mg PO QAM #16 tab 04/17/19
== END 2019-04-17 18:38 | disposition home or self-care (01) | DRG 66 ==
LOC: ED 11:18 → 2S 14:29 → 4W 04-15 17:48